=== PATIENT | male | born 1985 | race African-American/Black ===

== ENCOUNTER 2024-03-17 09:12 | Inpatient (IN) | payer OTHER ==
[2024-03-17] VITALS (7 sets, daily range): BP systolic 100–112; BP diastolic 45–67; PULSE 81–134; RESP 18–20; TEMP 97.9–100.2; O2SAT 98–99
[~2024-03-17] VITALS: Ht 177.8 cm; Wt 63.5 kg
--- NOTE | 2024-03-17 09:31 | ED.PDOC ---
History of Present Illness HPI Comments 38-year-old male brought by paramedics because of headache nausea vomiting diarrhea for past two days. Patient blood pressure was 114/71 with a temperature of 101.6 saturation 97% on room air. He is also complaining of sore throat. History of CHF pancreatitis. Has not taken any medication to relieve his symptoms. Denies any other symptoms. Chief Complaint: Flu like Time Seen by MD: 09:24 Reviewed Notes: Nurses Notes, Medications, Allergies Information Source: Patient, Emergency Med Personnel Mode of Arrival: EMS Severity: Moderate Timing: Days Duration: Since onset Past Medical History PAST MEDICAL HISTORY: HTN Surgical History: Denies all surgeries Social History Smoker: Non-Smoker Alcohol: Denies ETOH Use Drugs: Denies Drug Use Constitutional: denies: chills, diaphoresis, fatigue, fever, malaise, sweats, weakness, others EENTM: reports: throat pain; denies: blurred vision, double vision, ear bleeding, ear discharge, ear drainage, ear pain, ear ringing, eye pain, eye redness, hearing loss, mouth pain, mouth swelling, nasal discharge, nose bleeding, nose congestion, nose pain, photophobia, tearing, throat swelling, voice changes, others Respiratory: denies: cough, hemoptysis, orthopnea, SOB at rest, shortness of breath, SOB with excertion, stridor, wheezing, others Cardiovascular: denies: chest pain, dizzy spells, diaphoresis, Dyspnea on exertion, edema, irregular heart beat, left arm pain, lightheadedness, palpitations, PND, syncope, others Gastrointestinal: reports: diarrhea, nausea, vomiting; denies: abdomen distended, abdominal pain, blood streaked bowels, constipated, dysphagia, difficulty swallowing, hematemesis, melena, poor appetite, poor fluid intake, rectal bleeding, rectal pain, others Genitourinary: denies: burning, dysuria, flank pain, frequency, hematuria, incontinence, penile discharge, penile sore, pain, testicle pain, testicle swelling, urgency, others Neurological: denies: dizziness, fainting, headache, left sided numbness, left sided weakness, numbness, paresthesia, pre-existing deficit, right sided numbne ss, right sided weakness, seizure, speech problems, tingling, tremors, weakness, others Musculoskeletal: denies: back pain, gout, joint pain, joint swelling, muscle pain, muscle stiffness, neck pain, others Integumetry: denies: bruises, change in color, change in hair/nails, dryness, laceration, lesions, lumps, rash, wounds, others Allergic/Immunocompromised: denies: Difficulty Healing, Frequent Infections, Hives, Itching, others Hematologic/Lymphatic: denies: anemia, blood clots, easy bleeding, easy bruising, swollen glands, others Endocrine: denies: excessive hunger, excessive sweating, excessive thirst, excessive urination, flushing, intolerance to cold, intolerance to heat, unexplained weight gain, unexplained weight loss, others Psychiatric: denies: anxiety, bipolar disorder, depression, hopeless, panic disorder, schizophrenia, sleepless, suicidal, others Physical Exam General Appearance: Moderate Distress HEENT: Normal ENT Inspection, Pharynx Normal, TMs Normal Neck: Full Range of Motion, Non-Tender, Normal, Normal Inspection Respiratory: Chest Non-Tender, Lungs Clear, No Accessory Muscle Use, No Respiratory Distress, Normal Breath Sounds Cardiovascular: No Edema, No JVD, No Murmur, No Gallop, Normal Peripheral Pulses, Regular Rate/Rhythm Breast Exam: Deferred Gastrointestinal: No Organomegaly, Non Tender, No Pulsatile Mass, Normal Bowel Sounds, Soft Genitalia: Deferred Pelvic: Deferred Rectal: Deferred Extremities: No calf tenderness, Normal capillary refill, Normal inspection, Normal range of motion, Non-tender, No pedal edema Musculoskeletal : Apperance: Normal Neurologic: Alert, physician asst II-XII nml as Tested, No Motor Deficits, Normal Affect, Normal Mood, No Sensory Deficits Cerebellar Function: NOT DONE Reflexes: NOT DONE Skin: Dry, Normal Color, Warm Peripheral Pulses: 3+ Radial (R), 3+ Radial (L) Lymphatic: No Adenopathy Was a procedure done? Was a procedure done?: No Differential Dx Considerations may include: Anemia Electrolyte imbalance X-Ray, Labs, Meds, VS Patient alert. Complaining of nausea vomiting diarrhea. Possible viral illness. Possible gastroenteritis. Vitals stable. Fever control. Establish intravenous access. Was given fluids. Explained to the patient. Continue to monitor. Time of 1ST Reevaluation: 09:29 Reevaluation 1ST: Unchanged Patient Education/Counseling: Diagnosis, Treatment, Prognosis, Need For Follow Up Family Education/Counseling: No Family Present Departure 1 Departure Time of Disposition: :30 Impression: Primary Impression: Gastroenteritis Disposition: 09 ADMITTED INPATIENT Admit to: Med Surg Condition: Guarded Critical Care Note Critical Care Time?: No Stability Stability form required: No Heart Score Heart Score: Heart Score Response (Comments) Value History N/A 0 EKG N/A 0 Age N/A 0 Risk Factors N/A 0 Troponin N/A 0 Total 0 AAMIR GIBBONS MD Mar 17, 2024 09:31
[2024-03-17] MEDS: ACETAMINOPHEN 325 MG TAB PO ONE (09:52)
--- NOTE | 2024-03-17 10:00 | DVH ---
CHEST RADIOGRAPH Indication: sob Technique: Single frontal view of the chest was obtained Comparison: None FINDINGS: Lines and Tubes: None Lungs: No focal consolidation. Pleura: No effusion. No pneumothorax. Cardiomediastinal contours: Unremarkable Bones: No acute osseous abnormality. IMPRESSION: No acute cardiopulmonary disease.
[2024-03-17 10:01] LABS: Urine Bacteria None Seen /hpf (None Seen)
[2024-03-17 10:08] LABS: Urine Blood 1+ /uL (Negative); Urine Budding Yeast OCCASIONAL /hpf (None Seen); Urine Clarity Clear (Clear); Urine Color Dark-Yellow (Yellow); Urine Protein, UAD TRACE (Negative); Urine Specific Gravity 1.019 (1.001-1.035); Urine Squamous Epithelial Cell None Seen /hpf (<5); Urine Urobilinogen 8 mg/dL (Negative); Urine WBC 1 /HPF (0-3)
[2024-03-17] MEDS: SODIUM CHLORIDE 0.9% 1,000 ML IV ONE (10:09)
[2024-03-17 10:18] LABS: Rapid Influenza A Negative (Negative); Rapid Influenza B Negative (Negative)
[2024-03-17 10:53] LABS: Mean Corpuscular Hemoglobin 26.5 pg (28.0-32.0); Mean Corpuscular Hgb Conc. 32.6 g/dL (32.0-36.0)
[2024-03-17 10:55] LABS: Hematocrit 30.9 % (41.0-53.0); Hemoglobin 10.1 g/dL (13.5-17.5); Mean Corpuscular Volume 81.3 fL (80.0-100.0); Platelet Count (auto) 172 10^3/uL (140-450); Red Blood Cells 3.81 10^6/uL (4.5-5.90); Red Cell Distribution Width 23.8 % (11.8-14.3); White Blood Cell 24.7 10^3/uL (4.4-10.8)
[2024-03-17 11:07] LABS: Basophils % (manual) 0 (0.0-2.0); Blast Cells 0; Eosinophils % (manual) 0 (0-7); Metamyelocytes % 0; Myelocytes % 0; Promyelocytes % 0; Reactive Lymphocytes 0
[2024-03-17 11:08] LABS: Chloride 99 mmol/L (98-107); Potassium 3.9 mmol/L (3.5-5.1)
[2024-03-17 11:09] LABS: Anion Gap 12 (5-15); Carbon Dioxide 22 mmol/L (20-31)
[2024-03-17 11:10] LABS: Calcium 9.6 mg/dL (8.7-10.4)
--- NOTE | 2024-03-17 11:11 | DVH ---
CT ABDOMEN AND PELVIS WITHOUT CONTRAST CLINICAL HISTORY: pain TECHNIQUE: Multiple contiguous axial images of the abdomen and pelvis without intravenous contrast. The images were reformatted degenerate coronal and sagittal reconstructions. All CT scans at this medical facility are performed using dose modulation techniques as appropriate t o a performed exam including the following:Automated exposure control was utilized; adjustment of the MA and/or KV according to patient size; and use of iterative reconstruction technique. Radiation Dose Information: CT Dose: CTDI volume is 5 mGy. Dose-length product is 268 mGy*cm Comparison: None FINDINGS: Evaluation of the abdomen and pelvis is limited without intravenous contrast. There are small calcified gallstones in the gallbladder. There are multiple calcifications in the walters creas compatible with chronic pancreatitis. The liver, kidneys, adrenal glands, and spleen appear within normal limits. There is no gross evidence of abdominal lymphadenopathy. There is no free fluid or free air. The stomach grossly appears unremarkable. The small and large bowel loops demonstrate normal caliber . There is a normal-appearing appendix seen in the right lower quadrant abdomen. There are mild calcified atherosclerotic changes in the abdominal aorta. The IVC appears within norm al limits. The bladder appears unremarkable for the degree of poor distention. Pelvic organ appears within leeann l limits. There is no gross evidence of a pelvic mass. There is no free fluid collection. There is small patchy opacity along the posteromedial left lower lobe. The right lung base is clear. There is no acute osseous abnormality. IMPRESSION: 1. There is no acute process in the abdomen and pelvis. 2. Small patchy opacity in the posteromedial left lower lobe may represent atelectasis versus airspac e disease. Clinical correlation is recommended. 3. Cholelithiasis. 4. Findings consistent with chronic pancreatitis. HS:Y
[2024-03-17 11:14] LABS: BUN/Creatinine Ratio 7.5 (10.0-20.0)
[2024-03-17] MEDS ORDERED: HYDROcodone-ACET 5/325MG TAB PO PRN (11:15)
[2024-03-17] MEDS ORDERED: cefTRIAXone 1GM/50ML D5W 50 ML IV ONE (11:15)
[2024-03-17] MEDS ORDERED: ONDANSETRON HCL 4 MG/2 ML VIAL IV PRN (11:15)
[2024-03-17 11:16] LABS: Blood Urea Nitrogen 7 mg/dL (9-23); Glucose 127 mg/dL (74-106); Sodium 133 mmol/L (136-145)
[2024-03-17 11:28] LABS: Lipase 19 U/L (12-53)
[2024-03-17 12:11] LABS: Lactic Acid w/Reflex 2.1 mmol/L (0.4-2.0)
--- NOTE | 2024-03-17 12:14 | DVHHP2 ---
History of Present Illness Reason for Visit: Abdominal pain History of Present Illness Vincenzo Gomez is a 30-year-old male with past medical history of CHF, pancreatitis, and IBS who presents to the ED for headache, nausea, vomiting, diarrhea, sore throat, and abdominal pain x2 days. Patient reports the pain being 10/10 pressure-like and constant in his abdomen. He states that it is his pancreas. Patient also reports that he is vomiting bright red blood for the last 2 days. Upon examination conjunctival icterus is noted. Patient denies any chest pain, shortness of breath, stool with blood, lightheadedness, weakness, dizziness, or recent sick contacts. Patient reports that Calvin and Dilaudid do not work for his pain but morphine does regardless of his allergies that he mentions. Cardiovascular: CHF GI: Inflam bowel disease Past Medical History Pancreatitis Past Surgical History: None Family History: None Smoke: No ALCOHOL: occassional Drugs: None Lives: with Family Domestic Violence: Neg Review of Systems Constitutional: Yes: Fever, Other (Headache); No: Chills, Sweats, Weakness, Malaise Eyes: Other (Conjunctival icterus); No: Pain, Vision change, Conjunctivae inflammation, Eyelid inflammation, Redness ENT: Throat pain; No: Ear pain, Ear discharge, Nose pain, Nose discharge, Nose congestion, Mouth pain, Mouth swelling, Throat swelling, Other Respiratory: No: Cough, Dry, Shortness of breath, SOB with excertion, Wheezing, Hemoptysis, Pleuritic Pain, Sputum, Wheezing, Other Cardiovascular: No: Chest Pain, Palpitations, Orthopnea, Paroxysmal Noc. Dyspnea, Edema, Lt Headedness, Other Gastrointestinal: Nausea, Vomiting, Abdominal Pain, Other (Hematemesis); No: Diarrhea, Constipation, Melena, Hematochezia Genitourinary: No Dysuria, No Frequency, No Incontinence, No Hematuria, No Retention, No Other Musculoskeletal: No: other, neck pain, shoulder pain, arm pain, back pain, hand pain, leg pain, foot pain Skin: No: Rash, Lesions, Jaundice, Bruising, Other Neurological: No: Weakness, Numbness, Incoordination, Change in speech, Confusion, Seizures, Other Allergies: Coded Allergies: Hydrocodone (Verified Allergy, Unknown, 03/17/24) Hydromorphone (Verified Allergy, Unknown, 03/17/24) Exam Vital Signs Vital Signs Date Time Temp Pulse Resp B/P (MAP) Pulse Ox O2 Delivery O2 Flow Rate FiO2 03/17/24 11:02 99.2 03/17/24 09:51 134 18 98 Room Air* 0 21 03/17/24 09:50 126/69 (88) General Appearance: Alert, Oriented X3, Cooperative, mild distress HEENT: Atraumatic, PERRLA, EOMI Respiratory: Normal air movement Cardiovascular: Normal S1, Normal S2, No murmurs Abdominal: Soft Extremities: No clubbing, No cyanosis, No edema, Normal pulses, No tenderness/swelling Skin: No significant lesion Neuro: Normal gait, Normal speech, Strength at 5/5 X4 ext, Normal tone, Sensation intact Psych/Mental Status: Mental status NL, Mood NL Labs/Xrays Labs Test 03/17/24 09:50 03/17/24 09:43 03/17/24 09:38 Range/Units White Blood Count 24.7 H 4.4-10.8 10^3/uL Red Blood Count 3.81 L 4.5-5.90 10^6/uL Hemoglobin 10.1 L 13.5-17.5 g/dL Hematocrit 30.9 L 41.0-53.0 % Mean Corpuscular Volume 81.3 80.0-100.0 fL Mean Corpuscular Hemoglobin 26.5 L 28.0-32.0 pg Mean Corpuscular Hemoglobin Concent 32.6 32.0-36.0 g/dL Red Cell Distribution Width 23.8 H 11.8-14.3 % Platelet Count 172 140-450 10^3/uL Mean Platelet Volume 7.0 6.9-10.8 fL Neutrophils (%) (Auto) 37.0-80.0 % Lymphocytes (%) (Auto) 10.0-50.0 % Monocytes (%) (Auto) 0.0-12.0 % Basophils (%) (Auto) 0.0-2.0 % Neutrophils # (Auto) 1.6-8.6 10 ^3/uL Lymphocytes # (Auto) 0.4-5.4 10 ^3/uL Monocytes # (Auto) 0-1.3 10 ^3/uL Sodium Level 133 L 136-145 mmol/L Potassium Level 3.9 3.5-5.1 mmol/L Chloride Level 99 98-107 mmol/L Carbon Dioxide Level 22 20-31 mmol/L Anion Gap 12 5-15 Blood Urea Nitrogen 7 L 9-23 mg/dL Creatinine 0.93 0.700-1.30 mg/dL Glomerular Filtration Rate Calc 108 >90 mL/min BUN/Creatinine Ratio 7.5 L 10.0-20.0 Serum Glucose 127 H 74-106 mg/dL Calcium Level 9.6 8.7-10.4 mg/dL Urine Color Dark-yellow Yellow Urine Clarity Clear Clear Urine pH 6.0 5.0-9.0 Urine Specific [place] 1.019 1.001-1.035 Urine Protein Trace H Negative Urine Ketones Trace Negative Urine Blood 1+ H Negative /uL Urine Nitrite Negative Negative Urine Bilirubin 1+ Negative Urine Urobilinogen 8 H Negative mg/dL Urine Leukocyte Esterase Negative Negative /uL Urine RBC 3 0 - 3 /hpf Urine Microscopic WBC 1 0-3 /HPF Urine Squamous Epithelial Cells None seen <5 /hpf Urine Bacteria None seen None Seen /hpf Urine Yeast (Budding) Occasional None Seen /hpf Urine Glucose Normal Normal mg/dL Influenza Type A Antigen Negative Negative Influenza Type B Antigen Negative Negative CT ABDOMEN AND PELVIS WITHOUT CONTRAST CLINICAL HISTORY: pain TECHNIQUE: Multiple contiguous axial images of the abdomen and pelvis without intravenous contrast. The images were reformatted degenerate coronal and sagittal reconstructions. All CT scans at this medical facility are performed using dose modulation techniques as appropriate to a performed exam including the following:Automated exposure control was utilized; adjustment of the MA and/or KV according to patient size; and use of iterative reconstruction technique. Radiation Dose Information: CT Dose: CTDI volume is 5 mGy. Dose-length product is 268 mGy*cm Comparison: None FINDINGS: Evaluation of the abdomen and pelvis is limited without intravenous contrast. There are small calcified gallstones in the gallbladder. There are multiple calcifications in the pancreas compatible with chronic pancreatitis. The liver, kidneys, adrenal glands, and spleen appear within normal limits. There is no gross evidence of abdominal lymphadenopathy. There is no free fluid or free air. The stomach grossly appears unremarkable. The small and large bowel loops demonstrate normal caliber. There is a normal-appearing appendix seen in the right lower quadrant abdomen. There are mild calcified atherosclerotic changes in the abdominal aorta. The I VC appears within normal limits. The bladder appears unremarkable for the degree of poor distention. Pelvic organ appears within normal limits. There is no gross evidence of a pelvic mass. There is no free fluid collection. There is small patchy opacity along the posteromedial left lower lobe. The right lung base is clear. There is no acute osseous abnormality. IMPRESSION: 1. There is no acute process in the abdomen and pelvis. 2. Small patchy opacity in the posteromedial left lower lobe may represent atelectasis versus airspace disease. Clinical correlation is recommended. 3. Cholelithiasis. 4. Findings consistent with chronic pancreatitis. CHEST RADIOGRAPH Indication: sob Technique: Single frontal view of the chest was obtained Comparison: None FINDINGS: Lines and Tubes: None Lungs: No focal consolidation. Pleura: No effusion. No pneumothorax. Cardiomediastinal contours: Unremarkable Bones: No acute osseous abnormality. IMPRESSION: No acute cardiopulmonary disease. Assessment/Plan Assessment/Plan Assessment/Plan: Intractable abdominal pain Leukocytosis likely due to sepsis Lactic acidosis likely due to sepsis Anemia Hyponatremia Conjunctival icterus Labs UA Flu negative NS 1 L given in ED Pain management Chest x-ray noted Lipase COVID CT abdomen and pelvis Lactic Blood cultures Urine cultures Antibiotics-Zosyn + vanc BNP Amylase Antiemetics A.m. 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 Procedure Category Date Status Time Covid19 Antigen Brianna LAB 03/17/[address] Ab Pel Wo Con-No CT 03/17/24 Resulted Oral Or Iv 10:44 Lactic Acid W/ Reflex LAB 03/17/24 Logged Order 10:46 Blood Culture SYLVIE 03/17/24 Logged 10:46 Urine Bacterial SYLVIE 03/17/24 Logged Culture 10:46 Ceftriaxone 1gm/50ml PHA 03/18/24 Logged D5w (Rocephin) 09:00 Ceftriaxone 1gm/50ml PHA 03/17/24 Logged D5w (Rocephin) 11:15 Piperacillin-Tazob PHA 03/17/24 Logged 3.375gm (Zosyn 3.375g 14:00 B-Type Natriuretic LAB 03/17/24 Logged Peptide 11:10 Admit ADMIT 03/17/24 Transmitted 11:10 Allergies HEMALATHA 03/17/24 In Process 11:10 Code Status CODE 03/17/24 Transmitted 11:10 Hydrocodone-Acet PHA 03/17/24 Logged 5/325mg Tab (Calvin 11:15 Ondansetron Hcl PHA 03/17/24 Logged (Zofran) 11:15 Complete Blood Count LAB 03/18/24 Verified 04:00 Comprehensive LAB 03/18/24 Verified Metabolic Panel 04:00 Cardiac DIET 03/17/24 Transmitted Diet-2gna,Lofat,Lochol Lunch Acetaminophen Tablet PHA 03/17/24 Logged (Tylenol Tablet) 11:15 Date of Service: Mar 17, 2024 Billing Provider: CELINA KINSEY Common Visit Codes: [id number] INP/OBS CARE (HIGH) CELINA KINSEY Mar 17, 2024 12:14
[2024-03-17 12:24] LABS: Band Neutrophils % (manual) 1; Lymphocytes % (manual) 8 (10.0-50.0); Monocytes % (manual) 7 (0-12); Platelet Estimate Adequate; Smudge Cells 2 /100 WBC
[2024-03-17] MEDS ORDERED: MULT-443 PO (12:40)
[2024-03-17] MEDS ORDERED: SUCR1SUS26 PO (12:40)
[2024-03-17] MEDS ORDERED: PANC3600 PO (12:40)
[2024-03-17] MEDS ORDERED: THIA100T20 PO (12:40)
[2024-03-17] MEDS ORDERED: DEXL30CA6 PO (12:40)
[2024-03-17] MEDS ORDERED: GABA-1250 PO (12:40)
[2024-03-17] MEDS ORDERED: VANCOMYCIN PER PHARMACY 0 MG IV SCH (12:45)
[2024-03-17] MEDS: ACETAMINOPHEN 325 MG TAB PO PRN (12:46)
[2024-03-17 13:07] LABS: Triglycerides 132 mg/dL (< 150)
[2024-03-17 13:08] LABS: Amylase 54 U/L (30-118); LDL Cholesterol 71 mg/dL (< 100)
[2024-03-17 13:09] LABS: Cholesterol 159 mg/dL (< 200); HDL Cholesterol 41 mg/dL (40-59)
[2024-03-17] MEDS ORDERED: MORPHINE SULFATE INJ 2 MG/ml SYRG IV PRN (13:30)
[2024-03-17] MEDS: VANCOMYCIN 1.25GM/250ML 250 ML IV ONE (14:26)
--- NOTE | 2024-03-17 15:33 | DVHCONRES ---
Date Seen: Mar 17, 2024 Resident Creating Document: DENY ROGERS RESIDENT History of Present Illness Mr. Loya is a 38-year-old male with PMHx of CHF, pancreatitis, IBS who presented to the ER with a chief complaint of diffuse abdominal pain, nausea and vomiting for the past 2 days. Patient reports bloody hematemesis for the past 2 days. He has had multiple episodes of acute pancreatitis for which lasts EGD was done 2 months back and bending was performed. Patient also reports diarrhea, which is watery, 4 X a day. He is unable to keep liquids and solids down. He had 3 colonoscopy in his lifetime so far, results unknown. He drinks 2 beers daily, denies drinking illicit drugs. Associated symptoms include fever, dysphagia. Patient seen and examined at the bedside. His diffuse abdominal pain. His feverish. No episodes of hematemesis for the past 24 hours. Family History: Patient reports no known family medical history. Allergies: Coded Allergies: Hydrocodone (Verified Allergy, Unknown, 03/17/24) Hydromorphone (Verified Allergy, Unknown, 03/17/24) Home Meds Reported Medications Pancrelipase (Lipase-Protease- (CREON) 36,000 Unt Cap, 1 CAP PO TID 03/17/24 Multiple Vitamin (One-Daily Multi-Vitamin) 1 Tab Tab, 1 TAB PO DAILY 03/17/24 Thiamine Hcl (Gnp Vitamin B1) 100 Mg Tab, 1 TAB PO DAILY 03/17/24 Dexlansoprazole (Dexlansoprazole) 30 Mg Cap, 1 CAP PO BID 03/17/24 Gabapentin (Gabapentin) 300 Mg Cap, 1 CAP PO 03/17/24 Sucralfate (CARAFATE SUSP) 1 Gm/10 Ml Ss, 10 ML PO QID 03/17/24 Current Medications Current Medications Medications (Trade) Dose Ordered Sig/Tess Route PRN Reason Start Time Stop Time Status Last Admin Ceftriaxone Sodium 50 ml @ 100 mls/hr DAILY@09 IV 03/18/24 09:00 Cancel Piperacillin Sod/ Tazobactam Sod 100 ml @ 25 mls/hr Q8HR IV 03/17/24 14:00 Acetaminophen/ Hydrocodone Bitart (Barnett 5/325MG Tab) 1 tab Q4HP PRN PO MODERATE PAIN (4-6 PAIN SCALE) 03/17/24 11:15 03/17/24 13:42 DC Ondansetron HCl (Zofran) 4 mg Q4HP PRN IV NAUSEA / VOMITING 03/17/24 11:15 Acetaminophen (Tylenol Tablet) 650 mg Q6HP PRN PO PAIN SCALE 1-3 OR TEMP>100.4 03/17/24 11:15 03/17/24 12:46 Vancomycin HCl 0 ml @ 0 mls/hr UD IV 03/17/24 12:45 Pantoprazole Sodium (Protonix) 40 mg BID IV 03/17/24 22:00 Morphine Sulfate 1 mg Q2HP PRN IV SEVERE PAIN (7-10 PAIN SCALE) 03/17/24 13:30 03/17/24 13:42 DC Morphine Sulfate 1 mg Q6HP PRN IV SEVERE PAIN (7-10 PAIN SCALE) 03/17/24 13:45 Vital Signs Vital Signs Date Time Temp Pulse Resp B/P (MAP) Pulse Ox O2 Delivery O2 Flow Rate FiO2 03/17/24 12:46 100.2 03/17/24 11:49 115 20 99 Room Air* 0 21 03/17/24 11:49 100/45 (63) Physical Exam Patient lying in chair in the holding area General: Well-built, febrile palor, mucosae are dry Cardiovascular: Regular S1 and S2. No murmurs, gallops or rubs. No JVD elevation. No pedal edema Respiratory: Normal B/L air entry on room air. Clear lung sounds on auscultation Abdomen: Soft, diffusely tender, distended, normoactive bowel sounds, no rebound tenderness, no organomegaly, no masses Genitourinary: Deferred MSK/skin: Mobilizes 4 limbs. Skin is dry and warm Neurological: No motor, no sensitive deficits, normal speech. Pupils are isocoric and reactive. Psych/Mental Status: A/Ox4 Labs/Diagnostic Data Labs Test 03/17/24 12:54 03/17/24 09:50 03/17/24 09:43 03/17/24 09:38 Range/Units Lactic Acid Level 2.1 *H 0.4-2.0 mmol/L White Blood Count 24.7 H 4.4-10.8 10^3/uL Red Blood Count 3.81 L 4.5-5.90 10^6/uL Hemoglobin 10.1 L 13.5-17.5 g/dL Hematocrit 30.9 L 41.0-53.0 % Mean Corpuscular Volume 81.3 80.0-100.0 fL Mean Corpuscular Hemoglobin 26.5 L 28.0-32.0 pg Mean Corpuscular Hemoglobin Concent 32.6 32.0-36.0 g/dL Red Cell Distribution Width 23.8 H 11.8-14.3 % Platelet Count 172 140-450 10^3/uL Mean Platelet Volume 7.0 6.9-10.8 fL Neutrophils (%) (Auto) 37.0-80.0 % Lymphocytes (%) (Auto) 10.0-50.0 % Monocytes (%) (Auto) 0.0-12.0 % Basophils (%) (Auto) 0.0-2.0 % Neutrophils # (Auto) 1.6-8.6 10 ^3/uL Lymphocytes # (Auto) 0.4-5.4 10 ^3/uL Monocytes # (Auto) 0-1.3 10 ^3/uL Differential Total Cells Counted 100.0 100 Neutrophils % (Manual) 84 H 37.0-80.0 Band Neutrophils % (Manual) 1 Lymphocytes % (Manual) 8 L 10.0-50.0 Monocytes % (Manual) 7 0-12 Eosinophils % (Manual) 0 0-7 Basophils % (Manual) 0 0.0-2.0 Metamyelocytes % (manual) 0 Myelocytes % (Manual) 0 Promyelocytes % (Manual) 0 Blast Cells % (Manual) 0 Reactive Lymphocytes 0 Smudge Cells 2 /100 WBC Platelet Estimate Adequate Sodium Level 133 L 136-145 mmol/L Potassium Level 3.9 3.5-5.1 mmol/L Chloride Level 99 98-107 mmol/L Carbon Dioxide Level 22 20-31 mmol/L Anion Gap 12 5-15 Blood Urea Nitrogen 7 L 9-23 mg/dL Creatinine 0.93 0.700-1.30 mg/dL Glomerular Filtration Rate Calc 108 >90 mL/min BUN/Creatinine Ratio 7.5 L 10.0-20.0 Serum Glucose 127 H 74-106 mg/dL Calcium Level 9.6 8.7-10.4 mg/dL B-Type Natriuretic Peptide 109.08 0-100 pg/mL Triglycerides Level 132 < 150 mg/dL Cholesterol Level 159 < 200 mg/dL LDL Cholesterol 71 < 100 mg/dL HDL Cholesterol 41 40-59 mg/dL Amylase Level 54 30-118 U/L Lipase 19 12-53 U/L Urine Color Dark-yellow Yellow Urine Clarity Clear Clear Urine pH 6.0 5.0-9.0 Urine Specific [place] 1.019 1.001-1.035 Urine Protein Trace H Negative Urine Ketones Trace Negative Urine Blood 1+ H Negative /uL Urine Nitrite Negative Negative Urine Bilirubin 1+ Negative Urine Urobilinogen 8 H Negative mg/dL Urine Leukocyte Esterase Negative Negative /uL Urine RBC 3 0 - 3 /hpf Urine Microscopic WBC 1 0-3 /HPF Urine Squamous Epithelial Cells None seen <5 /hpf Urine Bacteria None seen None Seen /hpf Urine Yeast (Budding) Occasional None Seen /hpf Urine Glucose Normal Normal mg/dL Influenza Type A Antigen Negative Negative Influenza Type B Antigen Negative Negative Assessment Intractable nausea and vomiting secondary to ? Cholangitis - patient had right upper quadrant pain/jaundice/fever Sepsis secondary to ? Cholangitis ? ? Chronic pancreatitis Direct hyperbilirubinemia Alcoholic dependence History of acute pancreatitis History of IBS ? Left lower lobe pneumonia CT abdomen shows chronic pancreatitis and cholelithiasis. History of upper EGD 2 months back with endoscopic banding MRCP shows no cholelithiasis or biliary dilation. Plan: Scheduled for upper EGD 03/18/2024. NPO starting breakfast 03/18 Follow up with hepatitis panel Consulted surgeon Continue Protonix and IV fluids Avoid NSAIDs Continue clear liquid diet Antibiotics per primary team Follow up triglyceride level Plan discussed with patient in which all questions have been answered Case discussed with Dr. Copeland Plan discussed with: Patient DENY ROGERS RESIDENT Mar 17, 2024 15:33
[2024-03-17] MEDS: PIPERACILLIN-TAZOB 3.375GM 100 ML IV SCH (15:48)
[2024-03-17 16:26] LABS: Bilirubin, Total 5.1 mg/dL (0.2-1.0); Total Protein 8.4 g/dL (5.7-8.2)
[2024-03-17] MEDS: MORPHINE SULFATE INJ 2 MG/ml SYRG IV PRN (16:26)
--- NOTE | 2024-03-17 18:40 | DVH ---
CLINICAL HISTORY: elevated liver enzymes gallstone abd pain r/o cbd stone TECHNIQUE: MRI and MRCP of the abdomen was performed without gadolinium. 3D reconstructed images were created under concurrent radiologist supervision and archived on the PACS system. WID: COMPARISON: CT abdomen and pelvis from same day FINDINGS: Lower Thorax: Moderate-sized Dependent consolidation in the medial left lower lobe. Normal-sized hear t. Liver and Biliary system: Hepatomegaly measuring 19 cm craniocaudal. The vascular flow voids of the p ortal veins are preserved. No discrete hepatic lesion on this noncontrast MRI. The gallbladder is nor mal caliber. There is no biliary ductal dilatation. No cholelithiasis. Spleen: No splenomegaly. Adrenal Glands and Kidneys: Unremarkable. Pancreas and Retroperitoneum: Mildly atrophic pancreas. Normal caliber of the main pancreatic duct. T here is no retroperitoneal lymphadenopathy. Aorta and Major Vessels: Normal caliber visualized aortoiliac vessels Bowel, Mesentery and Peritoneal space: Normal caliber small and large bowel. There is no fluid collec tion or ascites. Abdominal wall and Osseous Structures: Unremarkable. IMPRESSION: 1. No cholelithiasis or biliary ductal dilatation. 2. Dependent consolidation in the medial left lower lobe which could reflect pneumonia. 3. Mild hepatosplenomegaly.
[2024-03-17] MEDS: SODIUM CHLORIDE 0.9% 1,000 ML IV SCH (19:45)
[2024-03-17] MEDS: PANTOPRAZOLE 40 MG/10 ML VIAL INJ IV SCH (22:13)
[2024-03-17] MEDS: VANCOMYCIN 750MG KIT 100 ML IV SCH (22:14)
[2024-03-17] MEDS: ACETAMINOPHEN 325 MG TAB PO SCH (22:14)
[2024-03-18] VITALS (9 sets, daily range): BP systolic 105–137; BP diastolic 62–73; PULSE 79–101; RESP 17–21; TEMP 97.4–98.3; O2SAT 96–99
[2024-03-18] MEDS ORDERED: ZOFR4T PO (00:17)
[2024-03-18] MEDS ORDERED: THIA100T10 PO (00:17)
[2024-03-18] MEDS ORDERED: FERR28TA4 PO (00:17)
[2024-03-18] MEDS ORDERED: PANT40TA2 PO (00:17)
[2024-03-18 04:19] LABS: COVID19 ANTIGEN SOFIA FIA NEGATIVE (NEGATIVE)
[2024-03-18 06:11] LABS: Hematocrit 29.7 % (41.0-53.0); Hemoglobin 9.6 g/dL (13.5-17.5); Mean Corpuscular Hemoglobin 26.6 pg (28.0-32.0); Mean Corpuscular Hgb Conc. 32.4 g/dL (32.0-36.0); Mean Corpuscular Volume 82.1 fL (80.0-100.0); Platelet Count (auto) 162 10^3/uL (140-450); Red Blood Cells 3.62 10^6/uL (4.5-5.90); Red Cell Distribution Width 23.4 % (11.8-14.3)
[2024-03-18 06:12] LABS: Basophils % (manual) 0 (0.0-2.0); Blast Cells 0; Metamyelocytes % 0; Myelocytes % 0; Promyelocytes % 0; Reactive Lymphocytes 0
[2024-03-18 06:20] LABS: Alanine Aminotransferase 15 U/L (7-40); Anion Gap 8 (5-15); BUN/Creatinine Ratio 7.9 (10.0-20.0); Calcium 9.1 mg/dL (8.7-10.4); Carbon Dioxide 22 mmol/L (20-31); Chloride 106 mmol/L (98-107); Potassium 3.7 mmol/L (3.5-5.1)
[2024-03-18 06:21] LABS: Albumin 3.3 g/dL (3.2-4.8)
[2024-03-18 06:22] LABS: Alkaline Phosphatase 161 U/L (46-116); Aspartate Aminotransferase 47 U/L (13-40); Bilirubin, Total 3.9 mg/dL (0.2-1.0); Blood Urea Nitrogen 6 mg/dL (9-23); Glucose 126 mg/dL (74-106); Sodium 136 mmol/L (136-145); Total Protein 7.2 g/dL (5.7-8.2)
[2024-03-18 06:27] LABS: Band Neutrophils % (manual) 9; Eosinophils % (manual) 2 (0-7); Lymphocytes % (manual) 6 (10.0-50.0); Monocytes % (manual) 6 (0-12); Platelet Estimate Adequate
[2024-03-18 08:48] LABS: Hepatitis B Surface Antibody Positive (Negative); Hepatitis B Surface Antigen Negative (Negative)
[2024-03-18] MEDS ORDERED: cefTRIAXone 1GM/50ML D5W 50 ML IV SCH (09:00)
--- NOTE | 2024-03-18 09:01 | DVH ---
INDICATION: RUQ pain TECHNIQUE: Multiple real-time sonographic images were obtained of the right upper quadrant. COMPARISON: 03/17/2024 FINDINGS: The liver demonstrates increased echotexture without focal mass lesions. The liver measures 19 cm which is enlarged. There is no intrahepatic or extrahepatic ductal dilatation. The common du ct measures 6 mm. Gallstones. The gallbladder wall measures 4 mm and is thickened. There is pericholecystic edema. S onographic jarquin's sign is reportedly positive. The right kidney measures 7 cm. The right kidney is normal in contour, size, and shape. The echoge nicity is normal. There is no hydronephrosis. The pancreas is not well visualized due to overlying bowel gas. There is peripancreatic fluid. IMPRESSION: Cholelithiasis. Mild nonspecific gallbladder wall thickening. Sonographic jarquin's sign is reportedly positive. Findings can be seen in the setting of acute cholecystitis. If clinically indicated, con newspaper illustrator further evaluation with nuclear medicine HIDA scan. Peripancreatic edema and fluid is nonspecific. Correlate with amylase / lipase for acute appendiciti s. Hepatic steatosis and hepatomegaly.
[2024-03-18 09:08] LABS: Hepatitis C Antibody Negative (Negative)
[2024-03-18 11:27] LABS: INR 1.76 (0.9-1.15); Partial Thromboplastin Time 37.6 SEC (24.5-34.5); Prothrombin Time 17.6 sec (9.3-11.8)
--- NOTE | 2024-03-18 12:06 | DVHPN2 ---
Subjective The patient is seen and examined at bedside. The patient is tired and hungry. Reviewed: Care Plan, H&P, Labs, Medications, Previous Orders, Radiology Changes from previous H/P or p: No Changes Eyes: No Pain, No Vision change, No Conjunctivae inflammation, No Eyelid inflammation; Other (Conjunctival icterus); No Redness ENT: No Ear pain, No Ear discharge, No Nose pain, No Nose discharge, No Nose congestion, No Mouth pain, No Mouth swelling; Throat pain; No Throat swelling, No Other Cardiovascular: No Chest Pain, No Palpitations, No Orthopnea, No Paroxysmal Noc. Dyspnea, No Edema, No Lt Headedness, No Other Respiratory: No Cough, No Dry, No Shortness of breath, No SOB with excertion, No Wheezing, No Hemoptysis, No Pleuritic Pain, No Sputum, No Other Gastrointestinal: Nausea, Vomiting, Abdominal Pain; No Diarrhea, No Constipation, No Melena, No Hematochezia; Other (Hematemesis) Genitourinary: No Dysuria, No Frequency, No Incontinence, No Hematuria, No Retention, No Other Musculoskeletal: No other, No neck pain, No shoulder pain, No arm pain, No back pain, No hand pain, No leg pain, No foot pain Skin: No Rash, No Lesions, No Jaundice, No Bruising, No Other Objective Vitals Vital Signs Date Time Temp Pulse Resp B/P (MAP) Pulse Ox O2 Delivery O2 Flow Rate FiO2 03/18/24 11:13 97 18 116/69 03/18/24 09:00 98.3 99 98.3 03/17/24 21:56 Room Air* 0 21 Intake/Output Intake and Output 03/18/24 07:00 Intake Total 1000 ml Output Total 1300 ml Balance -300 ml Intake Oral 0 ml IV Total 1000 ml Output Urine Total 1300 ml General Appearance: Alert, Oriented X3, Cooperative, No acute distress HEENT: Atraumatic, PERRLA, EOMI, Mucous membr. moist/pink Neck: Supple Lungs: Clear to auscultation, Normal air movement Cardiovascular: Regular rate, Normal S1, Normal S2, No murmurs, Gallops, Rubs Abdomen: Normal bowel sounds, Soft, No tenderness Neuro: Cranial nerves 3-12 NL Psych/Mental Status: Mental status NL Medications Current Medications Medications Dose Ordered Sig/Tess Route Start Time Stop Time Status Last Admin Dose Admin Ceftriaxone Sodium 50 ml @ 100 mls/hr DAILY@09 IV 03/18/24 09:00 Cancel Piperacillin Sod/ Tazobactam Sod 100 ml @ 25 mls/hr Q8HR IV 03/17/24 14:00 03/18/24 05:14 25 MLS/HR Ondansetron HCl 4 mg Q4HP PRN IV 03/17/24 11:15 Vancomycin HCl 0 ml @ 0 mls/hr UD IV 03/17/24 12:45 Pantoprazole Sodium 40 mg BID IV 03/17/24 22:00 03/18/24 10:35 40 MG Morphine Sulfate 1 mg Q6HP PRN IV 03/17/24 13:45 03/18/24 10:38 1 MG Vancomycin HCl 100 ml @ 100 mls/hr Q8H IV 03/17/24 22:00 03/18/24 05:14 100 MLS/HR Sodium Chloride 1,000 ml @ 125 mls/hr Q8H IV 03/17/24 19:45 03/17/24 19:45 125 MLS/HR Acetaminophen 650 mg Q6H PO 03/17/24 20:00 03/17/24 22:14 650 MG Laboratory Results Laboratory Tests 03/18/24 05:13 Chemistry Test 03/18/24 05:13 Albumin 3.3 g/dL (3.2-4.8) Calcium Level 9.1 mg/dL (8.7-10.4) Total Protein 7.2 g/dL (5.7-8.2) Coagulation Test 03/18/24 10:45 Prothrombin Time 17.6 sec (9.3-11.8) H Prothrombin Time INR 1.76 (0.9-1.15) H Activated Partial Thromboplast Time 37.6 SEC (24.5-34.5) H LFT Test 03/18/24 05:13 Alanine Aminotransferase (ALT) 15 U/L (7-40) Alkaline Phosphatase 161 U/L (46-116) H Aspartate Amino Transferase (AST) 47 U/L (13-40) H Total Bilirubin 3.9 mg/dL (0.2-1.0) H Urinalysis Test 03/17/24 09:43 Urine Color Dark-yellow (Yellow) Urine Clarity Clear (Clear) Urine pH 6.0 (5.0-9.0) Urine Specific [place] 1.019 (1.001-1.035) Urine Protein Trace (Negative) H Urine Ketones Trace (Negative) Urine Blood 1+ /uL (Negative) H Urine Nitrite Negative (Negative) Urine Bilirubin 1+ (Negative) Urine Urobilinogen 8 mg/dL (Negative) H Urine Leukocyte Esterase Negative /uL (Negative) Urine RBC 3 /hpf (0 - 3) Urine Microscopic WBC 1 /HPF (0-3) Urine Squamous Epithelial Cells None seen /hpf (<5) Urine Bacteria None seen /hpf (None Seen) Urine Yeast (Budding) Occasional /hpf (None Urine Glucose Normal mg/dL (Normal) Microbiology Microbiology Date/Time Source Procedure Growth Status 03/17/24 11:21 Blood Blood Culture - Preliminary NO GROWTH AFTER 24 HOURS OF INCUBATION. Resulted 03/17/24 09:43 Voided Urine Urine Culture - Preliminary Resulted Labs and/or images reviewed: Labs reviewed by me Assessment/Plan Assessment/Plan Intractable abdominal pain Leukocytosis likely due to sepsis Lactic acidosis likely due to sepsis Anemia Hyponatremia Conjunctival icterus History of pancreatitis History of IBS History of CHF Continuing current management. Continuing with IV antibiotic. We will monitor hyponatremia. Continuing eyedrops. Transfuse as needed if hemoglobin less than seven Waiting for GI specialist to see the patient Plan discussed with: Patient Date of Service: Mar 18, 2024 Billing Provider: NEDRA HURD MD Common Visit Codes: [id number] INP/OBS CARE(HIGH) NEDRA HURD MD Mar 18, 2024 12:06
--- NOTE | 2024-03-18 12:37 | DVHINCON2 ---
Date of service: Mar 18, 2024 Family History: Diabetes mellitus G8 MOTHER Allergies: Coded Allergies: Hydrocodone (Verified Allergy, Unknown, 03/17/24) Hydromorphone (Verified Allergy, Unknown, 03/17/24) Home Meds Reported Medications Ferrous Sulfate (Iron) 28 Mg Tab, PO, TAB 03/18/24 Thiamine Hcl (VITAMIN B-1) 100 Mg Tb, PO, TAB 03/18/24 Ondansetron Odt 4MG Tab (ZOFRAN PO) 4 Mg Tb, 4 MG PO PRN for NAUSEA / VOMITING, TAB ODT TAB-DISSOLVE IN MOUTH, THEN SWALLOW 03/18/24 Pantoprazole Sodium Sesquihydr (Protonix) 40 Mg Tab, 40 MG PO DAILY, #30 TAB 03/18/24 Pancrelipase (Lipase-Protease- (CREON) 36,000 Unt Cap, 1 CAP PO TID 03/17/24 Multiple Vitamin (One-Daily Multi-Vitamin) 1 Tab Tab, 1 TAB PO DAILY 03/17/24 Thiamine Hcl (Gnp Vitamin B1) 100 Mg Tab, 1 TAB PO DAILY 03/17/24 Dexlansoprazole (Dexlansoprazole) 30 Mg Cap, 1 CAP PO BID 03/17/24 Gabapentin (Gabapentin) 300 Mg Cap, 1 CAP PO 03/17/24 Sucralfate (CARAFATE SUSP) 1 Gm/10 Ml Ss, 10 ML PO QID 03/17/24 Current Medications Current Medications Medications (Trade) Dose Ordered Sig/Tess Route PRN Reason Start Time Stop Time Status Last Admin Ceftriaxone Sodium 50 ml @ 100 mls/hr DAILY@09 IV 03/18/24 09:00 Cancel Piperacillin Sod/ Tazobactam Sod 100 ml @ 25 mls/hr Q8HR IV 03/17/24 14:00 03/18/24 05:14 Vancomycin HCl 0 ml @ 0 mls/hr UD IV 03/17/24 12:45 Pantoprazole Sodium (Protonix) 40 mg BID IV 03/17/24 22:00 03/18/24 10:35 Morphine Sulfate 1 mg Q2HP PRN IV SEVERE PAIN (7-10 PAIN SCALE) 03/17/24 13:30 03/17/24 13:42 DC Morphine Sulfate 1 mg Q6HP PRN IV SEVERE PAIN (7-10 PAIN SCALE) 03/17/24 13:45 03/18/24 10:38 Vancomycin HCl 100 ml @ 100 mls/hr Q8H IV 03/17/24 22:00 03/18/24 05:14 Sodium Chloride 1,000 ml @ 125 mls/hr Q8H IV 03/17/24 19:45 03/18/24 12:17 Acetaminophen (Tylenol Tablet) 650 mg Q6H PO 03/17/24 20:00 03/17/24 22:14 Vital Signs Vital Signs Date Time Temp Pulse Resp B/P (MAP) Pulse Ox O2 Delivery O2 Flow Rate FiO2 03/18/24 11:13 97 18 116/69 03/18/24 09:00 98.3 99 98.3 03/17/24 21:56 Room Air* 0 21 Labs/Diagnostic Data Labs Test 03/18/24 10:45 03/18/24 05:13 03/18/24 03:30 03/17/24 20:37 Range/Units Prothrombin Time 17.6 H 9.3-11.8 sec Prothrombin Time INR 1.76 H 0.9-1.15 Activated Partial Thromboplast Time 37.6 H 24.5-34.5 SEC White Blood Count 21.0 H 4.4-10.8 10^3/uL Red Blood Count 3.62 L 4.5-5.90 10^6/uL Hemoglobin 9.6 L 13.5-17.5 g/dL Hematocrit 29.7 L 41.0-53.0 % Mean Corpuscular Volume 82.1 80.0-100.0 fL Mean Corpuscular Hemoglobin 26.6 L 28.0-32.0 pg Mean Corpuscular Hemoglobin Concent 32.4 32.0-36.0 g/dL Red Cell Distribution Width 23.4 H 11.8-14.3 % Platelet Count 162 140-450 10^3/uL Mean Platelet Volume 7.3 6.9-10.8 fL Neutrophils (%) (Auto) 37.0-80.0 % Lymphocytes (%) (Auto) 10.0-50.0 % Monocytes (%) (Auto) 0.0-12.0 % Basophils (%) (Auto) 0.0-2.0 % Neutrophils # (Auto) 1.6-8.6 10 ^3/uL Lymphocytes # (Auto) 0.4-5.4 10 ^3/uL Monocytes # (Auto) 0-1.3 10 ^3/uL Differential Total Cells Counted 100.0 100 Neutrophils % (Manual) 77 37.0-80.0 Band Neutrophils % (Manual) 9 Lymphocytes % (Manual) 6 L 10.0-50.0 Monocytes % (Manual) 6 0-12 Eosinophils % (Manual) 2 0-7 Basophils % (Manual) 0 0.0-2.0 Metamyelocytes % (manual) 0 Myelocytes % (Manual) 0 Promyelocytes % (Manual) 0 Blast Cells % (Manual) 0 Reactive Lymphocytes 0 Platelet Estimate Adequate Sodium Level 136 136-145 mmol/L Potassium Level 3.7 3.5-5.1 mmol/L Chloride Level 106 98-107 mmol/L Carbon Dioxide Level 22 20-31 mmol/L Anion Gap 8 5-15 Blood Urea Nitrogen 6 L 9-23 mg/dL Creatinine 0.76 0.700-1.30 mg/dL Glomerular Filtration Rate Calc 118 >90 mL/min BUN/Creatinine Ratio 7.9 L 10.0-20.0 Serum Glucose 126 H 74-106 mg/dL Calcium Level 9.1 8.7-10.4 mg/dL Total Bilirubin 3.9 H 0.2-1.0 mg/dL Aspartate Amino Transferase (AST) 47 H 13-40 U/L Alanine Aminotransferase (ALT) 15 7-40 U/L Alkaline Phosphatase 161 H 46-116 U/L Total Protein 7.2 5.7-8.2 g/dL Albumin 3.3 3.2-4.8 g/dL SARS-CoV-2 Antigen (Rapid) Negative NEGATIVE Lactic Acid Level 1.3 0.4-2.0 mmol/L Test 03/17/24 09:50 03/17/24 09:43 03/17/24 09:38 Range/Units Smudge Cells 2 /100 WBC Direct Bilirubin 3.0 H <0.3 mg/dL B-Type Natriuretic Peptide 109.08 0-100 pg/mL Triglycerides Level 132 < 150 mg/dL Cholesterol Level 159 < 200 mg/dL LDL Cholesterol 71 < 100 mg/dL HDL Cholesterol 41 40-59 mg/dL Amylase Level 54 30-118 U/L Lipase 19 12-53 U/L Hepatitis B Surface Antigen Negative Negative Hepatitis B Surface Antibody Positive H Negative Hepatitis C Antibody Negative Negative Urine Color Dark-yellow Yellow Urine Clarity Clear Clear Urine pH 6.0 5.0-9.0 Urine Specific [place] 1.019 1.001-1.035 Urine Protein Trace H Negative Urine Ketones Trace Negative Urine Blood 1+ H Negative /uL Urine Nitrite Negative Negative Urine Bilirubin 1+ Negative Urine Urobilinogen 8 H Negative mg/dL Urine Leukocyte Esterase Negative Negative /uL Urine RBC 3 0 - 3 /hpf Urine Microscopic WBC 1 0-3 /HPF Urine Squamous Epithelial Cells None seen <5 /hpf Urine Bacteria None seen None Seen /hpf Urine Yeast (Budding) Occasional None Seen /hpf Urine Glucose Normal Normal mg/dL Influenza Type A Antigen Negative Negative Influenza Type B Antigen Negative Negative Microbiology Date/Time Source Procedure Growth Status 03/17/24 11:21 Blood Blood Culture - Preliminary NO GROWTH AFTER 24 HOURS OF INCUBATION. Resulted 03/17/24 09:43 Voided Urine Urine Culture - Preliminary Resulted Assessment 38 YEAR OLD MALE WITH ABDOMINAL PAIN, ALSO UPPER RESPIRATORY INFECTION (CONGESTED, COUGHING, C/O SORE THROAT), LEUKOCYTOSIS COULD BE DUE TO THE uri, WILL GET HIDA SCAN Plan discussed with: Patient GLENYS SPENCER MD Mar 18, 2024 12:37
[2024-03-18] MEDS ORDERED: LIDOCAINE 2% (LOCAL ANESTH.) PF 5ml SDV ONE (14:56)
[2024-03-18] MEDS ORDERED: PROPOFOL 10 MG/ML 20 ML IV ONE ×2 (14:56→15:26)
--- NOTE | 2024-03-18 15:45 | DVHOP2 ---
Operative Report DATE OF OPERATION: 03/18/24 PROCEDURE: Upper Endoscopy with biopsy. PREOPERATIVE INDICATION: The patient is a 38 -year-old male undergoing endoscopy for upper GI bleed POSTOPERATIVE DIAGNOSES: 1. Patient had a 1-2 cm sliding-type hiatal hernia with grade a erosive esophagitis 2. There was scarring from previous band ligation however there were no active esophageal varices at this time 3. Aytp-rt-bfufkexw gastritis and gastropathy with hyperemia erythema; increase oozing from biopsy sites 4. Otherwise normal examination up to the 2nd and 3rd part of the duodenum with no fresh or old blood in the upper GI tract and no active bleeding PROCEDURE PERFORMED BY: Brett Lane GI NURSE: James SCOPE: Olympus videoendoscope. ASA CLASS: 3. PREOPERATIVE MEDICATIONS: Marin foley, Petey Acevedo PROCEDURE IN DETAIL: After obtaining an informed consent, the patient was placed on left lateral decubitus position. The patient was then sedated with the above medications. A bite block was placed between his teeth. The endoscope was then passed through the oropharynx, into the esophagus, and through the stomach and pylorus up to the second and third part of the duodenum. The endoscope was then withdrawn. The 2nd and 3rd part of the duodenal and the duodenal bulb were normal. There was good bile drainage. Duodenal biopsies were obtained The pre-pyloric area antrum body showed ewgy-ng-[id number] gastritis. On retroflexion and straight on view the patient had moderate gastropathy of the proximal stomach. There was no fresh or old blood in the upper GI tract. Gastric biopsies were obtained and mild increase oozing was noted from biopsy sites The endoscope was then withdrawn into the distal esophagus where he had a 1-2 cm sliding-type hiatal hernia with grade a to B erosive esophagitis The remaining distal and proximal esophagus and oropharynx were unremarkable. There were no active esophageal varices. There was some scar tissue in the distal esophagus possibly from previous band ligation sites. The patient tolerated the procedure well without difficulty. COMPLICATIONS : None SPECIMENS: Duodenal biopsies Gastric biopsy DISPOSITION: Transfer back to the floor Stable PLAN: 1. Await for biopsy result 2. Will place pt on Protonix 40 mg bid 3. Full liquid diet advance as tolerated 4. Carafate 1 g p.o. 4 times a day 5. Further workup is ongoing for cholelithiasis possible cholecystitis; apprecia te surgical consult input; awaiting HIDA 6. Patient is liver enzymes are trending down and he does have a history of moderate alcohol intake and may have [id number] alcoholic hepatitis, patient also has left lower lobe consolidation; monitor BRETT LANE MD Mar 18, 2024 15:45
[2024-03-18] MEDS: VANCOMYCIN 1GM/250ML KIT 250 ML IV SCH (21:06)
[2024-03-18] MEDS: MELATONIN 5 MG TAB PO SCH (23:42)
[2024-03-19 05:00] VITALS: BP 110/68; PULSE 96; RESP 20; TEMP 98.4; O2SAT 99
[2024-03-19 05:42] LABS: Anion Gap 8 (5-15); Carbon Dioxide 21 mmol/L (20-31); Chloride 106 mmol/L (98-107); Potassium 3.9 mmol/L (3.5-5.1)
[2024-03-19 05:43] LABS: Calcium 8.8 mg/dL (8.7-10.4)
[2024-03-19 05:50] LABS: BUN/Creatinine Ratio 8.3 (10.0-20.0); Blood Urea Nitrogen < 5 mg/dL (9-23); Glucose 136 mg/dL (74-106); Sodium 135 mmol/L (136-145)
[2024-03-19 09:00] VITALS: BP 110/72; PULSE 92; RESP 18; TEMP 97.9; O2SAT 99
--- NOTE | 2024-03-19 10:20 | DVHPN2 ---
Progress Note Date Seen: Mar 19, 2024 Resident Creating Document: DENY ROGERS RESIDENT Medical Necessity Reason Pt with a Central, PICC or Fol: No Subjective Review of Systems Mr. Loya is a 38-year-old male with PMHx of CHF, pancreatitis, IBS who presented to the ER with a chief complaint of diffuse abdominal pain, nausea and vomiting for the past 2 days. Patient reports bloody hematemesis for the past 2 days. He has had multiple episodes of acute pancreatitis for which lasts EGD was done 2 months back and bending was performed. Patient also reports diarrhea, which is watery, 4 X a day. He is unable to keep liquids and solids down. He had 3 colonoscopy in his lifetime so far, results unknown. He drinks 2 beers daily, denies drinking illicit drugs. Associated symptoms include fever, dysphagia. Patient seen and examined at the bedside. Reports right upper quadrant pain. Patient is passing gas. No bowel movements. Continue full liquid diet. Pending HIDA scan. WBC trending down to 11. LFTs are stable Maddrey's discriminant function score 24, good prognosis, no steroids indicated at this time Objective vital signs Vital Sign Date Time Temp Pulse Resp B/P (MAP) Pulse Ox O2 Delivery O2 Flow Rate FiO2 03/19/24 09:00 97.9 92 18 110/72 (85) 99 97.9 03/18/24 20:00 Room Air* 0 21 Total Intake and Output 03/18/24 03/18/24 03/19/24 15:00 23:00 07:00 Intake Total 200 ml 250 ml 1050 ml Output Total 760 ml Balance 200 ml -510 ml 1050 ml medications Current Medications Medications Dose Ordered Sig/Tess Route Start Time Stop Time Status Last Admin Dose Admin Ceftriaxone Sodium 50 ml @ 100 mls/hr DAILY@09 IV 03/18/24 09:00 Cancel Piperacillin Sod/ Tazobactam Sod 100 ml @ 25 mls/hr Q8HR IV 03/17/24 14:00 03/19/24 05:35 25 MLS/HR Ondansetron HCl 4 mg Q4HP PRN IV 03/17/24 11:15 Vancomycin HCl 0 ml @ 0 mls/hr UD IV 03/17/24 12:45 Pantoprazole Sodium 40 mg BID IV 03/17/24 22:00 03/18/24 21:05 40 MG Morphine Sulfate 1 mg Q6HP PRN IV 03/17/24 13:45 03/18/24 21:38 1 MG Sodium Chloride 1,000 ml @ 125 mls/hr Q8H IV 03/17/24 19:45 03/18/24 21:36 125 MLS/HR Acetaminophen 650 mg Q6H PO 03/17/24 20:00 03/19/24 05:34 650 MG Vancomycin HCl 250 ml @ 250 mls/hr Q8H IV 03/18/24 22:00 03/19/24 05:35 250 MLS/HR Melatonin 5 mg HS PO 03/19/24 00:00 03/18/24 23:42 5 MG Examination Patient lying in chair in the holding area General: Well-built, febrile palor, mucosae are dry Cardiovascular: Regular S1 and S2. No murmurs, gallops or rubs. No JVD elevation. No pedal edema Respiratory: Normal B/L air entry on room air. Clear lung sounds on auscultation Abdomen: Soft, diffusely tender, distended, normoactive bowel sounds, no rebound tenderness, no organomegaly, no masses Genitourinary: Deferred MSK/skin: Mobilizes 4 limbs. Skin is dry and warm Neurological: No motor, no sensitive deficits, normal speech. Pupils are isocoric and reactive. Psych/Mental Status: A/Ox4 laboratory and microbiology Laboratory Tests 03/19/24 04:37 03/18/24 05:13 Test 03/19/24 04:37 Range/Units Serum Glucose 136 H 74-106 mg/dL Microbiology Date/Time Source Procedure Growth Status 03/17/24 11:21 Blood Blood Culture - Preliminary NO GROWTH AFTER 24 HOURS OF INCUBATION. Resulted 03/17/24 09:43 Voided Urine Urine Culture - Preliminary Resulted Labs and/or images reviewed: Labs reviewed by me, Image(s) reviewed by me Problem List/Assessment/Plan Problem List/Assessment/Plan Intractable nausea and vomiting secondary to ? Cholangitis - patient had right upper quadrant pain/jaundice/fever Sepsis secondary to ? Cholangitis ? ? Chronic pancreatitis Likely cholecystitis Likely alcoholic steatohepatitis Sliding-type hiatal hernia Grade a erosive esophagitis and moderate gastritis Direct hyperbilirubinemia Alcoholic dependence History of acute pancreatitis History of IBS ? Left lower lobe pneumonia CT abdomen shows chronic pancreatitis and cholelithiasis. History of upper EGD 2 months back with endoscopic banding MRCP shows no cholelithiasis or biliary dilation. GB ultrasound shows cholelithiasis. Mild nonspecific GB wall thickening. Hoffman sign positive. EGD completed 03/18/2024 shows 1-2 cm sliding-type hiatal hernia with grade a erosive esophagitis. Scarring from previous band ligation however there were no active esophageal varices at this time. Aikp-ck-dzbmelfe gastritis and gastric material hyperemia. Plan: Maddrey's discriminant function score 24, good prognosis, no steroids indicated at this time Continue Protonix 40 mg b.i.d. and Carafate 1 g p.o. 4 times a day. Await for biopsy results. LFTs trending down Hepatitis panel negative Consulted surgeon - follow up with HIDA scan Continue Protonix and IV fluids Avoid NSAIDs Continue full liquid diet Antibiotics per primary team Plan discussed with patient in which all questions have been answered Case discussed with Dr. Copeland Plan discussed with: Patient DENY ROGERS RESIDENT Mar 19, 2024 10:20
[2024-03-19 10:42] LABS: Alanine Aminotransferase 13 U/L (7-40); Anion Gap 11 (5-15); Calcium 8.8 mg/dL (8.7-10.4); Chloride 106 mmol/L (98-107); Potassium 3.9 mmol/L (3.5-5.1); Sodium 137 mmol/L (136-145); Total Protein 6.8 g/dL (5.7-8.2)
[2024-03-19 10:43] LABS: Alkaline Phosphatase 181 U/L (46-116); Aspartate Aminotransferase 45 U/L (13-40); BUN/Creatinine Ratio 7.1 (10.0-20.0); Blood Urea Nitrogen < 5 mg/dL (9-23); Carbon Dioxide 20 mmol/L (20-31); Glucose 136 mg/dL (74-106)
[2024-03-19 10:44] LABS: Albumin 3.1 g/dL (3.2-4.8)
[2024-03-19 10:56] LABS: Basophils # (auto) 0.2 10 ^3/uL (0-0.2); Eosinophils # (auto) 0.2 10 ^3/uL (0-0.8); Monocytes # (auto) 0.8 10 ^3/uL (0-1.3); Platelet Count (auto) 175 10^3/uL (140-450)
[2024-03-19 10:57] LABS: Basophils % (auto) 1.9 % (0.0-2.0); Hematocrit 29.1 % (41.0-53.0); Hemoglobin 9.3 g/dL (13.5-17.5); Lymphocytes # (auto) 3.7 10 ^3/uL (0.4-5.4); Lymphocytes % (auto) 32.1 % (10.0-50.0); Mean Corpuscular Hemoglobin 26.3 pg (28.0-32.0); Mean Corpuscular Hgb Conc. 31.9 g/dL (32.0-36.0); Mean Corpuscular Volume 82.4 fL (80.0-100.0); Monocytes % (auto) 7.2 % (0.0-12.0); Neutrophils # (auto) 6.6 10 ^3/uL (1.6-8.6); Neutrophils % (auto) 56.8 % (37.0-80.0); Nucleated Red Blood Cells % 0.1 %; Red Blood Cells 3.53 10^6/uL (4.5-5.90); White Blood Cell 11.7 10^3/uL (4.4-10.8)
[2024-03-19 11:04] LABS: Red Cell Distribution Width 23.8 % (11.8-14.3)
--- NOTE | 2024-03-19 11:19 | ECG ---
[facility] Test Date: 2024-03-18 Test Time: 06:23:02 Pat Name: SANTOSH GAITAN Department: Room: 0285 B Gender: M Fisher Diving: at : 1985 Requested By: BRETT LANE Order Number: [id number] Reading MD: Measurements Intervals [place] Rate: 89 P: 62 CO: 161 QRS: 72 QRSD: 74 T: 51 QT: 371 QTc: 452 Interpretive Statements Sinus rhythm Abnormal R-wave progression, early transition Please click the below link to view image of tracing.
[2024-03-19 11:31] LABS: Platelet Estimate Adequate
[2024-03-19 11:32] LABS: Anisocytosis Slight
[2024-03-19 11:59] LABS: INR 1.62 (0.9-1.15); Partial Thromboplastin Time 37.2 SEC (24.5-34.5); Prothrombin Time 16.4 sec (9.3-11.8)
--- NOTE | 2024-03-19 12:03 | DVHPN2 ---
Subjective The patient is seen and examined at bedside. Complain of abdominal pain still. Reviewed: Care Plan, H&P, Labs, Medications, Previous Orders, Radiology Changes from previous H/P or p: No Changes Eyes: No Pain, No Vision change, No Conjunctivae inflammation, No Eyelid inflammation; Other (Conjunctival icterus); No Redness ENT: No Ear pain, No Ear discharge, No Nose pain, No Nose discharge, No Nose congestion, No Mouth pain, No Mouth swelling; Throat pain; No Throat swelling, No Other Cardiovascular: No Chest Pain, No Palpitations, No Orthopnea, No Paroxysmal Noc. Dyspnea, No Edema, No Lt Headedness, No Other Respiratory: No Cough, No Dry, No Shortness of breath, No SOB with excertion, No Wheezing, No Hemoptysis, No Pleuritic Pain, No Sputum, No Other Gastrointestinal: Nausea, Vomiting, Abdominal Pain; No Diarrhea, No Constipation, No Melena, No Hematochezia; Other (Hematemesis) Genitourinary: No Dysuria, No Frequency, No Incontinence, No Hematuria, No Retention, No Other Musculoskeletal: No other, No neck pain, No shoulder pain, No arm pain, No back pain, No hand pain, No leg pain, No foot pain Skin: No Rash, No Lesions, No Jaundice, No Bruising, No Other Objective Vitals Vital Signs Date Time Temp Pulse Resp B/P (MAP) Pulse Ox O2 Delivery O2 Flow Rate FiO2 03/19/24 10:03 92 16 110/72 03/19/24 09:00 97.9 99 97.9 03/18/24 20:00 Room Air* 0 21 Intake/Output Intake and Output 03/19/24 07:00 Intake Total 1500 ml Output Total 760 ml Balance 740 ml Intake Oral 700 ml IV Total 800 ml Output Urine Total 760 ml # Voids 2 General Appearance: Alert, Oriented X3, Cooperative, No acute distress HEENT: Atraumatic, PERRLA, EOMI, Mucous membr. moist/pink Neck: Supple Lungs: Clear to auscultation, Normal air movement Cardiovascular: Regular rate, Normal S1, Normal S2, No murmurs, Gallops, Rubs Abdomen: Normal bowel sounds, Soft, No tenderness Neuro: Cranial nerves 3-12 NL Psych/Mental Status: Mental status NL Medications Current Medications Medications Dose Ordered Sig/Tess Route Start Time Stop Time Status Last Admin Dose Admin Ceftriaxone Sodium 50 ml @ 100 mls/hr DAILY@09 IV 03/18/24 09:00 Cancel Piperacillin Sod/ Tazobactam Sod 100 ml @ 25 mls/hr Q8HR IV 03/17/24 14:00 03/19/24 05:35 25 MLS/HR Ondansetron HCl 4 mg Q4HP PRN IV 03/17/24 11:15 Vancomycin HCl 0 ml @ 0 mls/hr UD IV 03/17/24 12:45 Pantoprazole Sodium 40 mg BID IV 03/17/24 22:00 03/19/24 10:00 40 MG Morphine Sulfate 1 mg Q6HP PRN IV 03/17/24 13:45 03/19/24 10:03 1 MG Sodium Chloride 1,000 ml @ 125 mls/hr Q8H IV 03/17/24 19:45 03/18/24 21:36 125 MLS/HR Acetaminophen 650 mg Q6H PO 03/17/24 20:00 03/19/24 10:04 650 MG Vancomycin HCl 250 ml @ 250 mls/hr Q8H IV 03/18/24 22:00 03/19/24 05:35 250 MLS/HR Melatonin 5 mg HS PO 03/19/24 00:00 03/18/24 23:42 5 MG Laboratory Results Laboratory Tests 03/19/24 04:37 Chemistry Test 03/19/24 04:37 Albumin 3.1 g/dL (3.2-4.8) L Calcium Level 8.8 mg/dL (8.7-10.4) Total Protein 6.8 g/dL (5.7-8.2) Coagulation Test 03/19/24 11:25 Prothrombin Time 16.4 sec (9.3-11.8) H Prothrombin Time INR 1.62 (0.9-1.15) H Activated Partial Thromboplast Time 37.2 SEC (24.5-34.5) H LFT Test 03/19/24 04:37 Alanine Aminotransferase (ALT) 13 U/L (7-40) Alkaline Phosphatase 181 U/L (46-116) H Aspartate Amino Transferase (AST) 45 U/L (13-40) H Total Bilirubin 3.0 mg/dL (0.2-1.0) H Urinalysis Test 03/17/24 09:43 Urine Color Dark-yellow (Yellow) Urine Clarity Clear (Clear) Urine pH 6.0 (5.0-9.0) Urine Specific [place] 1.019 (1.001-1.035) Urine Protein Trace (Negative) H Urine Ketones Trace (Negative) Urine Blood 1+ /uL (Negative) H Urine Nitrite Negative (Negative) Urine Bilirubin 1+ (Negative) Urine Urobilinogen 8 mg/dL (Negative) H Urine Leukocyte Esterase Negative /uL (Negative) Urine RBC 3 /hpf (0 - 3) Urine Microscopic WBC 1 /HPF (0-3) Urine Squamous Epithelial Cells None seen /hpf (<5) Urine Bacteria None seen /hpf (None Seen) Urine Yeast (Budding) Occasional /hpf (None Urine Glucose Normal mg/dL (Normal) Microbiology Microbiology Date/Time Source Procedure Growth Status 03/17/24 11:21 Blood Blood Culture - Preliminary NO GROWTH AFTER 48 HOURS OF INCUBATION. Resulted 03/17/24 09:43 Voided Urine Urine Culture - Preliminary Resulted Labs and/or images reviewed: Labs reviewed by me Assessment/Plan Assessment/Plan Intractable abdominal pain Leukocytosis likely due to sepsis Lactic acidosis likely due to sepsis Anemia Hyponatremia Conjunctival icterus History of pancreatitis History of IBS History of CHF Continuing current management. Continuing with IV antibiotic. We will monitor hyponatremia. Continuing eyedrops. Transfuse as needed if hemoglobin less than seven Appreciate GI input. EGD was done yesterday. EGD showed: Patient had a 1-2 cm sliding-type hiatal hernia with grade a erosive esophagitis. There was scarring from previous band ligation however there were no active esophageal varices at this time . [id number] gastritis and gastropathy with hyperemia erythema; increase oozing from biopsy sites. Otherwise normal examination up to the 2nd and 3rd part of the duodenum with no fresh or old blood in the upper GI tract and no active bleeding The patient has ultrasound of gallbladder yesterday which showed: Cholelithiasis. Mild nonspecific gallbladder wall thickening. Sonographic jarquin's sign is reportedly positive. Findings can be seen in the setting of acute cholecystitis. If clinically indicated, consider further evaluation with nuclear medicine HIDA scan. Peripancreatic edema and fluid is nonspecific. Correlate with amylase / lipase for acute appendicitis. Hepatic steatosis and hepatomegaly. Subsequently he had an MRCP done which showed: No cholelithiasis or biliary ductal dilatation. Dependent consolidation in the medial left lower lobe which could reflect pneumonia. Mild hepatosplenomegaly. Waiting for HIDA scan to workup for possible acute cholecystitis. Plan discussed with: Patient Date of Service: Mar 19, 2024 Billing Provider: NEDRA HURD MD Common Visit Codes: [id number] INP/OBS CARE(HIGH) NEDRA HURD MD Mar 19, 2024 12:03
[2024-03-19 13:00] VITALS: BP 122/69; PULSE 88; RESP 16; TEMP 98.1; O2SAT 100
[2024-03-19 17:00] VITALS: BP 122/76; PULSE 86; RESP 16; TEMP 97.9; O2SAT 96
[2024-03-19 20:00] VITALS: PULSE 88; RESP 17
[2024-03-19 21:00] VITALS: BP 124/78; PULSE 80; RESP 17; TEMP 97.8; O2SAT 100
[2024-03-20 01:00] VITALS: BP 101/65; PULSE 85; RESP 17; TEMP 97.7; O2SAT 99
[2024-03-20 05:00] VITALS: BP 112/70; PULSE 88; RESP 17; TEMP 97.6; O2SAT 99
[2024-03-20 06:17] LABS: Red Cell Distribution Width 23.3 % (11.8-14.3)
[2024-03-20 06:19] LABS: Mean Corpuscular Hemoglobin 26.8 pg (28.0-32.0); Mean Corpuscular Hgb Conc. 33.2 g/dL (32.0-36.0); Mean Corpuscular Volume 80.6 fL (80.0-100.0); Platelet Count (auto) 175 10^3/uL (140-450); Red Blood Cells 3.72 10^6/uL (4.5-5.90); White Blood Cell 6.3 10^3/uL (4.4-10.8)
[2024-03-20 06:22] LABS: Chloride 104 mmol/L (98-107); Potassium 3.9 mmol/L (3.5-5.1); Sodium 137 mmol/L (136-145)
[2024-03-20 06:23] LABS: Anion Gap 9 (5-15); Calcium 9.2 mg/dL (8.7-10.4); Carbon Dioxide 24 mmol/L (20-31)
[2024-03-20 06:25] LABS: Basophils % (manual) 0 (0.0-2.0); Blast Cells 0; Metamyelocytes % 0; Myelocytes % 0; Promyelocytes % 0; Reactive Lymphocytes 0
[2024-03-20 06:28] LABS: Glucose 89 mg/dL (74-106)
[2024-03-20 06:32] LABS: BUN/Creatinine Ratio 8.1 (10.0-20.0); Blood Urea Nitrogen < 5 mg/dL (9-23)
[2024-03-20 07:08] LABS: Anisocytosis Slight; Band Neutrophils % (manual) 3; Eosinophils % (manual) 3 (0-7); Lymphocytes % (manual) 18 (10.0-50.0); Monocytes % (manual) 7 (0-12); Platelet Estimate Adequate
[2024-03-20 08:10] VITALS: PULSE 91; RESP 18; O2SAT 100
[2024-03-20 09:00] VITALS: BP 136/83; PULSE 91; RESP 18; TEMP 97.9; O2SAT 100
--- NOTE | 2024-03-21 23:42 | DVHDS2 ---
Discharge Summary Date of Admission Mar 17, 2024 at 11:10 Date of Discharge: Mar 20, 2024 Admitting Diagnosis Intractable abdominal pain Leukocytosis likely due to sepsis Lactic acidosis likely due to sepsis Anemia Hyponatremia Conjunctival icterus History of pancreatitis History of IBS History of CHF Labs/Diagnostic Data: Laboratory Results Test 03/20/24 04:45 03/19/24 21:05 03/19/24 11:25 03/19/24 04:37 White Blood Count 6.3 10^3/uL (4.4-10.8) Red Blood Count 3.72 10^6/uL (4.5-5.90) Hemoglobin 10.0 g/dL (13.5-17.5) Hematocrit 30.0 % (41.0-53.0) Mean Corpuscular Volume 80.6 fL (80.0-100.0) Mean Corpuscular Hemoglobin 26.8 pg (28.0-32.0) Mean Corpuscular Hemoglobin Concent 33.2 g/dL (32.0-36.0) Red Cell Distribution Width 23.3 % (11.8-14.3) Platelet Count 175 10^3/uL (140-450) Mean Platelet Volume 8.1 fL (6.9-10.8) Neutrophils (%) (Auto) % (37.0-80.0) Lymphocytes (%) (Auto) % (10.0-50.0) Monocytes (%) (Auto) % (0.0-12.0) Basophils (%) (Auto) % (0.0-2.0) Neutrophils # (Auto) 10 ^3/uL (1.6-8.6) Lymphocytes # (Auto) 10 ^3/uL (0.4-5.4) Monocytes # (Auto) 10 ^3/uL (0-1.3) Differential Total Cells Counted 100.0 (100) Neutrophils % (Manual) 69 (37.0-80.0) Band Neutrophils % (Manual) 3 Lymphocytes % (Manual) 18 (10.0-50.0) Monocytes % (Manual) 7 (0-12) Eosinophils % (Manual) 3 (0-7) Basophils % (Manual) 0 (0.0-2.0) Metamyelocytes % (manual) 0 Myelocytes % (Manual) 0 Promyelocytes % (Manual) 0 Blast Cells % (Manual) 0 Reactive Lymphocytes 0 Platelet Estimate Adequate Anisocytosis (manual) Slight Sodium Level 137 mmol/L (136-145) Potassium Level 3.9 mmol/L (3.5-5.1) Chloride Level 104 mmol/L (98-107) Carbon Dioxide Level 24 mmol/L (20-31) Anion Gap 9 (5-15) Blood Urea Nitrogen < 5 mg/dL (9-23) Creatinine 0.62 mg/dL (0.700-1.30) Glomerular Filtration Rate Calc 125 mL/min (>90) BUN/Creatinine Ratio 8.1 (10.0-20.0) Serum Glucose 89 mg/dL (74-106) Calcium Level 9.2 mg/dL (8.7-10.4) Vancomycin Level Trough 13.5 ug/mL (5-10) Prothrombin Time 16.4 sec (9.3-11.8) Prothrombin Time INR 1.62 (0.9-1.15) Activated Partial Thromboplast Time 37.2 SEC (24.5-34.5) Eosinophils (%) (Auto) 2.0 % (0.0-7.0) Eosinophils # (Auto) 0.2 10 ^3/uL (0-0.8) Basophils # (Auto) 0.2 10 ^3/uL (0-0.2) Nucleated Red Blood Cells 0.1 % Christopher Cells Moderate Schistocytes Few Total Bilirubin 3.0 mg/dL (0.2-1.0) Aspartate Amino Transferase (AST) 45 U/L (13-40) Alanine Aminotransferase (ALT) 13 U/L (7-40) Alkaline Phosphatase 181 U/L (46-116) Total Protein 6.8 g/dL (5.7-8.2) Albumin 3.1 g/dL (3.2-4.8) Test 03/18/24 03:30 03/17/24 20:37 03/17/24 09:50 03/17/24 09:43 SARS-CoV-2 Antigen (Rapid) Negative (NEGATIVE) Lactic Acid Level 1.3 mmol/L (0.4-2.0) Smudge Cells 2 /100 WBC Direct Bilirubin 3.0 mg/dL (<0.3) B-Type Natriuretic Peptide 109.08 pg/mL (0-100) Triglycerides Level 132 mg/dL (< 150) Cholesterol Level 159 mg/dL (< 200) LDL Cholesterol 71 mg/dL (< 100) HDL Cholesterol 41 mg/dL (40-59) Amylase Level 54 U/L (30-118) Lipase 19 U/L (12-53) Hepatitis B Surface Antigen Negative (Negative) Hepatitis B Surface Antibody Positive (Negative) Hepatitis C Antibody Negative (Negative) Urine Color Dark-yellow (Yellow) Urine Clarity Clear (Clear) Urine pH 6.0 (5.0-9.0) Urine Specific [place] 1.019 (1.001-1.035) Urine Protein Trace (Negative) Urine Ketones Trace (Negative) Urine Blood 1+ /uL (Negative) Urine Nitrite Negative (Negative) Urine Bilirubin 1+ (Negative) Urine Urobilinogen 8 mg/dL (Negative) Urine Leukocyte Esterase Negative /uL (Negative) Urine RBC 3 /hpf (0 - 3) Urine Microscopic WBC 1 /HPF (0-3) Urine Squamous Epithelial Cells None seen /hpf (<5) Urine Bacteria None seen /hpf (None Seen) Urine Yeast (Budding) Occasional /hpf (None Urine Glucose Normal mg/dL (Normal) Test 03/17/24 09:38 Influenza Type A Antigen Negative (Negative) Influenza Type B Antigen Negative (Negative) Other Laboratory Tests 03/20/24 04:45 Brief Hx & Hospital Course: This is a 38 years old male with past medical history of congestive heart failure, pancreatitis, irritable bowel syndrome come to emergency department because of headache, nausea, vomiting, diarrhea and sore throat and abdominal pain for two days. The patient reports the pain 10/10 pressure-like and constant in his abdomen. He vomited bright red blood four two days. He also had conjunctival icterus. The patient was admitted. The patient's hemoglobin was stable. The patient was given eyedrops. The patient abdominal pain was workup. The patient has CT abdomen pelvis done showed :There is no acute process in the abdomen and pelvis. Small patchy opacity in the posteromedial left lower lobe may represent atelectasis versus airspace disease. Clinical correlation is recommended. Cholelithiasis.Findings consistent with chronic pancreatitis. The patient was given IV antibiotic with Rocephin and Zithromax. The patient was seen by GI specialist. Dr. Copeland did an EGD. It showed the patient has erosive esophagitis, patient does have previous banding for esophageal varices but no bleeding this time. . She recommend Protonix 40 mg twice per day and Carafate a 1000 mg [address] Copeland recommend ultrasound abdomen pelvis and MRCP. MRCP showed no choledocholithiasis. The patient does have cholelithiasis. She order HIDA scan for further workup to see if the patient need to have cholecystectomy. However while waiting for HIDA scan the patient grew inpatient and decided to leave against medical advice. Patient verbally understand that if we do not have a full workup of GI he might come back with more abdominal pain however he choose to leave against medical advice. Physical exam prior to leaving against medical advice show: HEENT: Normocephalic atraumatic pupils equal react to light and accommodation. Extraocular muscles intact, conjunctiva pink, oropharynx moist, no thrush, no exudate. Lymphatic: No lymphadenopathy Cardiovascular exam: S1, S2 was heard. No murmurs, rubs, gallops Lung: Clear on auscultation bilaterally, no wheeze, rale, rhonchi. GI: Abdominal soft, nondistended, nontenderness, positive bowel sounds. Extremity: No crepitus, cyanosis, edema. Pedal pulses present bilateral. Full range of motion. Skin: Normal turgor, no rash. Psych: Alert, oriented x3. Neurology: No focal deficits, cranial nerve II to XII grossly intact. This medical document was created using an electronic medical record system with [employer] direct computerized dictation system. Although this document has been carefully reviewed, there may still be some phonetic and typographical errors. These areas are purely typographical due to imperfections of the software programs, and do not reflect any compromise in the patient's medical care. Condition at Discharge: Guarded Final Diagnosis/Problems List Intractable abdominal pain Leukocytosis likely due to sepsis Lactic acidosis likely due to sepsis Anemia Hyponatremia Conjunctival icterus History of pancreatitis History of IBS History of CHF Cholelithiasis Discharge Disposition: AMA Discharge Statement: "Patient was advised to return to the ER or call 911 if any headaches, dizziness, shortness of breath, chest pain, abdominal pain, bleeding, fevers, or worsening of medical condition. Patient was counseled about treatment plan, medications, possible side effects, patientverbalized understanding. All questions were answered to the best of my ability. This discharge took greater then 30 minutes in planning, reviewing documentation, counseling the patient, and discussing with other team members." ASSESSMENT ASSESSMENT Assessment Date of Service: Mar 20, 2024 Billing Provider: NEDRA HURD MD Common Visit Codes: 93705-[id number] DISCH DAY >30min NEDRA HURD MD Mar 21, 2024 23:42
== END 2024-03-20 12:24 | disposition left against medical advice (07) | DRG 720 ==
LOC: ER 09:12 → EDBD 09:12 → OVERFLOW 11:10 → WEST WING 11:18
PROVIDERS: ATTEND Internal Medicine
PROC: 0DB68ZX Excision of Stomach, Via Natural or Artificial Opening Endoscopic, Diagnostic (ICD-10-PCS; 2024-03-18)
PROC: 0DB98ZX Excision of Duodenum, Via Natural or Artificial Opening Endoscopic, Diagnostic (ICD-10-PCS; principal; 2024-03-18 15:16)
DX: A41.9 Sepsis, unspecified organism (principal); K22.11 Ulcer of esophagus with bleeding; E87.20 Acidosis, unspecified; J15.69 Pneumonia due to other Gram-negative bacteria; J15.9 Unspecified bacterial pneumonia; K29.71 Gastritis, unspecified, with bleeding; K83.09 Other cholangitis; E87.1 Hypo-osmolality and hyponatremia; I11.0 Hypertensive heart disease with heart failure; K81.9 Cholecystitis, unspecified; I50.9 Heart failure, unspecified; Z20.822 Contact with and (suspected) exposure to COVID-19; D64.9 Anemia, unspecified; K52.9 Noninfective gastroenteritis and colitis, unspecified; F10.20 Alcohol dependence, uncomplicated; Y90.9 Presence of alcohol in blood, level not specified; K86.1 Other chronic pancreatitis; K44.9 Diaphragmatic hernia without obstruction or gangrene; K31.9 Disease of stomach and duodenum, unspecified; J06.9 Acute upper respiratory infection, unspecified; Z88.5 Allergy status to narcotic agent; Z83.3 Family history of diabetes mellitus
CPT/HCPCS: 36415; 71045; 74176; 74181; 76705; 80048; 80053; 80061; 80076; 80202; 81001; 82150; 83605; 83690; 83880; 84478; 85007; 85025; 85027; 85610; 85730; 86706; 86803; 86850; 86900; 86901; 87040; 87086; 87340; 87426; 87804; 93005; 96361; 96365; 96367; 96375; G0378; J2003; J2470; J2543; J2704